=== PATIENT | male | born 1980 | race Caucasian/White ===

== ENCOUNTER 2025-08-05 20:22 | Emergency (ER) | payer BC ==
[2025-08-05] MEDS ORDERED: Sodium Chloride 0.9% 10 ML Syringe FLUSH PRN (20:25)
[2025-08-05 20:41] LABS: BASOPHILS ABSOLUTE AUTO 0.04 K/uL (0.00-0.20); BASOPHILS PERCENT AUTO 0.3 % (0.0-2.0); EOSINOPHILS ABSOLUTE AUTO 0.32 K/uL (0.00-0.50); EOSINOPHILS PERCENT AUTO 2.5 % (0.0-5.0); IMMATURE GRAN ABSOLUTE AUTO 0.04 10^3/uL (0.00-0.04); IMMATURE GRAN PERCENT AUTO 0.3 % (0.0-0.4); LYMPHOCYTES ABSOLUTE AUTO 2.57 K/uL (0.50-3.50); LYMPHOCYTES PERCENT AUTO 20.4 % (10.0-50.0); MONOCYTES ABSOLUTE AUTO 1.01 K/uL (0.00-1.00); MONOCYTES PERCENT AUTO 8.0 % (2.0-14.0); NEUTROPHILS ABSOLUTE AUTO 8.59 K/uL (1.40-7.00); NEUTROPHILS PERCENT AUTO 68.5 % (45.0-80.0); PLATELET COUNT,PLT 176 K/uL (150-350); RED BLOOD CELL COUNT 5.16 M/uL (4.33-5.41); RED CELL DISTRIBUTION WIDTH 12.6 % (11.2-14.1); WHITE BLOOD CELL COUNT,WBC 12.6 K/uL (4.0-10.2)
[2025-08-05 21:16] LABS: ALANINE AMINOTRANSFERASE,ALT 45 U/L (12-78); ASPARTATE AMNIOTRANSFERASE,AST 24 U/L (15-37); BILIRUBIN TOTAL 0.4 mg/dL (0.2-1.0); BLOOD UREA NITROGEN,BUN 27 mg/dL (7-18); CARBON DIOXIDE,CO2 25.7 mmol/L (21.0-32.0); CHLORIDE,CL 105 mmol/L (98-107); CREATININE 1.44 mg/dL (0.51-1.17); GLUCOSE RANDOM 91 mg/dL (70-99); POTASSIUM,K 3.5 mmol/L (3.5-5.1); PROTEIN TOTAL,TP 7.7 g/dL (6.4-8.2); SODIUM,NA 140 mmol/L (136-145)
[2025-08-05] MEDS: Iopamidol 755 Mg/ML 100 ML Bottle ONE (21:20)
[2025-08-05 21:22] LABS: ESTIMATED GFR 61 mL/min (>=60)
[2025-08-05 21:28] LABS: INR 1.1 (0.9-1.1); PTT,PARTIAL THROMBOPLSTIN TIME 24.1 SEC (23.8-34.4)
== END 2025-08-05 22:55 ==
LOC: LL.ED 20:22
DX: R29.810 Facial weakness (principal); Z79.899 Other long term (current) drug therapy
CPT/HCPCS: 36415; 70450; 70496; 70498; 80053; 82947; 84484; 85025; 85610; 85730; 93005; 99285; Q9967